=== PATIENT | female | born 1995 | race Caucasian/White ===

== ENCOUNTER 2020-06-29 15:25 | Emergency (ER) | payer OTHER, BC ==
[~2020-06-29] VITALS: Ht 157.5 cm; Wt 57.6 kg
[2020-06-29 15:35] VITALS: Ht 157.5 cm; Wt 57.6 kg
[2020-06-29 16:53] VITALS: BP 113/81
== END 2020-06-29 16:53 | disposition home or self-care (01) ==
LOC: ED 15:25
DX: S60.222A Contusion of left hand, initial encounter (principal); V49.49XA Driver injured in collision with other motor vehicles in traffic accident, initial encounter; Y93.I9 Activity, other involving external motion; Y92.488 Other paved roadways as the place of occurrence of the external cause; Y99.8 Other external cause status
CPT/HCPCS: Q0092